=== PATIENT | male | born 1965 | race Caucasian/White ===

== ENCOUNTER 2016-08-21 20:05 | Inpatient (IN) | payer BC ==
[~2016-08-21] VITALS: Ht 152.4 cm; Wt 95.3 kg
--- NOTE | ~2016-08-21 | EC ---
PATIENT:RUBY DAI DATE OF SERVICE: 08/23/16 SEX: M MEDICAL RECORD: [id number] DATE OF : 67 LOCATION:D.MS [address] AGE OF PATIENT: 50 ADMISSION DATE: 08/21/16 REFERRING PHYSICIAN: INTERPRETING PHYSICIAN: RIOS CASTANEDA MD ECHOCARDIOGRAM REPORT ECHO CHARGES 4 ECHO COMPLETE CLINICAL DIAGNOSIS: L MCA LACUNE/ ASSESS FOR CLOT HX OF CAD/STENTS/HTN ECHOCARDIOGRAPHIC MEASUREMENTS (adult normal given) AC root (d.<3.7cm) 4.1 LV Septum d (<1.2 cm> 1.5 Valve Excursion 1.9 LV Septum (systole) 2.0 Left Atria (s.<4.0cm> 2.7 LVPW d(<1.2cm) 1.6 RV (d.<2.3cm) 3.6 LVPW (sytole) 2.2 LV diastole(<5.6CM) 5.2 MV E-F(>70mm/sec) LV systole 3.2 LVOT Diameter 2.0 MV exc.(>10mm) 1.5 Est.ejection fraction (50-75%) Pericardial Effusion N DOPPLER: LVIT A 91.0 E 82.0 LA RVSP 17 LVOT 98 AOP1/2T Asc. Ao 158 RVOT 94 RA PA 194 AV Gradient Peak 9.52 AV Mean 4.87 AV Area 2.5 MV Gradient Peak 7.45 MV Mean 2.13 MV Area COMMENTS: PA IS 194 CM/SEC OR 3.55 MMHG, RVSP IS 17 MMHG Crane Rigger: Monae GUERRERO Cabinet Abrasive Sandblaster:1 Dr. Castaneda TAPE# PACS TWO-DIMENSIONAL ECHOCARDIOGRAM WITH DOPPLER 1. Left ventricular chamber size is within normal limits. Left ventricular systolic function is normal. Overall ejection fraction is estimated at 55 percent. 2. Left atrium, right atrium, and right ventricular chamber sizes are within normal limits. 3. Valvular structures have normal structure and motion. 4. Doppler interrogation only reveals trace tricuspid regurgitation; no other valvular insufficiency or stenosis. 5. No evidence of pericardial effusion or left ventricular thrombus. ECHOCARDIOGRAM REPORT [id number] RUBY DAI 6. No cardiac source of neurologic emboli. RIOS CASTANEDA MD CC: [id number] DICTATION DATE: 08/24/16 1500 METAL LEAF LAYER: DM 08/26/16 1145 DIS IN 08/23/16 [facility] [address] [facility] [place] [address]
[~2016-08-21 20:05] MED LIST: ASPIRIN325 MG PO; ASPIRIN81 MG PO; BAYER CHEWABLE81 MG PO; DILATRATE-SR40 MG PO; GLUCOPHAGE500 MG PO; HCTZ25 MG PO; LISINOPRIL10 MG PO; PLAVIX75 MG PO; PRAVACHOL20 MG PO; PREDNISONE5 MG PO
[2016-08-21 21:11] LABS: BASOPHILS 0.1 % (0-2); EOSINOPHILS 1.8 % (0-7); HEMATOCRIT 41.9 % (42.0-54.0); IMMATURE GRANULOCYTES 0.2 % (0-5); MCH 30.7 pg (26.0-34.0); MCHC 33.4 g/dL (31.0-37.0); MCV 91.9 fL (80.0-100.0); MONOCYTES 8.9 % (2-11); PLATELET COUNT 248 10x3/uL (130-400); RBC 4.56 10x6/uL (4.20-6.10); RDW 12.6 % (11.5-14.5); WBC 8.5 10x3/uL (4.8-10.8)
[2016-08-21 21:15] LABS: APTT 25.4 SECONDS (22.8-39.4); INR 0.93 (0.85-1.17); PROTIME 12.3 SECONDS (11.6-15.0)
[2016-08-21 21:45] LABS: ALBUMIN 3.7 g/dL (3.4-5.0); ALKALINE PHOSPHATASE 200 U/L (46-116); ALT (SGPT) 182 U/L (10-68); CALC OSMOLALITY 278 mosm/kg (275-300); CALCIUM 9.2 mg/dL (8.5-10.1); CARBON DIOXIDE 27.6 mmol/L (21.0-32.0); CHLORIDE - SERUM 98 mmol/L (98-107); CREATININE - SERUM 1.5 mg/dL (0.6-1.3); POTASSIUM - SERUM 4.7 mmol/L (3.5-5.1); SODIUM 135 mmol/L (136-145); UREA NITROGEN 15 mg/dL (7-18); eGFR NON AFRICAN AMERICAN 53 mL/min (90-120)
[2016-08-21 21:46] LABS: GLUCOSE 251 mg/dL (74-106)
[2016-08-21 22:01] LABS: CREATINE KINASE 118 UL (21-232); TROPONIN-I < 0.017 ng/mL (0.000-0.060)
--- NOTE | 2016-08-22 00:57 | NUR ---
ADMITTED TO ROOM 2240 VIA WHEELCHAIR FROM ER. CC OF RIGHT SIDED WEAKENSS. ALERT,ORIENTED X 3. SL TO LEFT AC WITHOUT REDNESS OR EDEMA NOTED..ORIENTED TO ROOM CL IN REACH
[2016-08-22 03:44] VITALS: BP 129/78; BMI 41.0
[2016-08-22 04:00] VITALS: BP 133/77
--- NOTE | 2016-08-22 06:50 | NUR ---
BS 192 PATIENT REFUSED INSULIN.STATING HE HAS NEVER TAKEN IT AND IS A LITTLE SCARED. WISHES TO TALK WITH HIS DOCTOR BEFORE TAKING IT.
--- NOTE | 2016-08-22 07:00 | NUR ---
REPORT RECIEVED ASSUMED CARE. PATIENT IN BED WITH IV INTACT. NO COMPLAINTS CALL LIGHT WITHIN REACH.
--- NOTE | 2016-08-22 08:50 | NUR ---
Patient Name: RUBY DAI Admission Status: ER Accout number: [id number] Admission Date: 08-21-2016 : 1965 Admission Diagnosis: Attending: ERIK Current LOS: 1 Anticipated DC Date: 08-24-2016 Planned Disposition: Home Primary Insurance: [email or web address] [facility] [place] Discharge Planning Comments: CM MET WITH PATIENT REGARDING D/C NEEDS AND PLANS. PATIENT STATED HE LIVES WITH HIS AND SHE WILL DRIVE HIM HOME AT DISCHARGE. PATIENT STATED THERE IS ONE STEP TO ENTER HOME AND A STAIRCASE IN THE HOME. PATIENT STATED HE IS INDEPENDENT WITH HIS CARE AND HAS A WALKER, CANE, CPAP, AND GLUCOMETER (CHECKS 2X WEEK) AT HOME. PATIENTS PCP IS DR. CHAN AND PHARMACY IS [facility]. PATIENT STATED HE DOES NOT WANT HOME HEALTH. CM WILL CONTINUE TO FOLLOW PATIENT WITH D/C NEEDS AND PLANS. PCP DR. DUSTIN DANIELLE [facility]- [phone] MARCIA DAI () [phone] Housekeeping Cleaner: Cass Fragoso Is the patient Alert and Oriented? Yes 0 * How many steps to enter\exit or inside your home? STAIRCASE 0 * PCP DR. CHAN 0 * Pharmacy [facility] ([facility]) 0 * Preadmission Environment Home with Family 0 * ADLs Independent 0 * Equipment Cane CPAP Glucometer Walker 0 * List name and contact numbers for known caregivers / representatives who currently or will assist patient after discharge: MARCIA DAI [phone] 0 * Community resources currently utilized None 0 * Additional services required to return to the preadmission environment? Yes 0 * Can the patient safely return to the preadmission environment? Yes 0 * Has this patient been hospitalized within the prior 30 days at any hospital? No 0 Grand Total: 0
[2016-08-22 09:27] VITALS: BP 124/84
[2016-08-22 09:36] LABS: BASOPHILS 0.1 % (0-2); HEMATOCRIT 40.5 % (42.0-54.0); HEMOGLOBIN 13.6 g/dL (13.5-17.5); IMMATURE GRANULOCYTES 0.3 % (0-5); LYMPHOCYTES 19.5 % (15-50); MCH 30.6 pg (26.0-34.0); MCHC 33.6 g/dL (31.0-37.0); MEAN PLATELET VOLUME 10.9 fL (7.4-10.4); MONOCYTES 6.5 % (2-11); NEUTROPHILS 71.6 % (40-80); PLATELET COUNT 226 10x3/uL (130-400); RBC 4.45 10x6/uL (4.20-6.10); RDW 12.7 % (11.5-14.5); WBC 7.5 10x3/uL (4.8-10.8)
[2016-08-22 09:48] LABS: ALBUMIN 3.4 g/dL (3.4-5.0); ALKALINE PHOSPHATASE 143 U/L (46-116); ALT (SGPT) 150 U/L (10-68); BILIRUBIN - TOTAL 0.43 mg/dL (0.2-1.3); CALC OSMOLALITY 273 mosm/kg (275-300); CALCIUM 8.7 mg/dL (8.5-10.1); CARBON DIOXIDE 24.9 mmol/L (21.0-32.0); CHLORIDE - SERUM 98 mmol/L (98-107); CHOL - HDL RATIO 3.3 ratio (2.3-4.9); CHOLESTEROL, TOTAL 211 mg/dL (0-200); GLUCOSE 227 mg/dL (74-106); HDL CHOLESTEROL 65 mg/dL (32-96); LDL CHOLESTEROL 114 mg/dL (0-100); LDL-HDL RATIO 1.8 ratio (1.5-3.5); SODIUM 133 mmol/L (136-145); TRIGLYCERIDE 164 mg/dL (30-200); UREA NITROGEN 14 mg/dL (7-18)
[2016-08-22 09:55] LABS: CREATININE - SERUM 1.1 mg/dL (0.6-1.3); POTASSIUM - SERUM 3.8 mmol/L (3.5-5.1); eGFR NON AFRICAN AMERICAN 75 mL/min (90-120)
[2016-08-22 10:54] LABS: HEMOGLOBIN A1C 8.6 % (4.8-6.0)
--- NOTE | 2016-08-22 13:00 | NUR ---
PATIENT BACK TO ROOM FROM CT. HAD ALLERGIC REACTION TO DYE WHILE DOWN THERE. VS STABLE. BS WNL. MEDS GIVEN BY RAPID RESPONSE NURSE. DR. MENA IN TO SEE PATIENT. FAMILY AT BEDSIDE. CALL LIGHT WITHIN REACH.
[2016-08-22 13:20] VITALS: BP 134/80
--- NOTE | 2016-08-22 15:03 | NUR ---
OT NOTE: PT OUT FOR MRI; WILL RE ATTEMPT TOMORROW. THANK YOU FOR REFERAL, JAZIEL HURST, OTR/L
[2016-08-22 15:14] VITALS: Ht 152.4 cm; Wt 95.3 kg
[2016-08-22 16:40] VITALS: BP 122/78
[2016-08-22 20:00] VITALS: BP 135/85
--- NOTE | 2016-08-22 20:10 | NUR ---
ALERT,ORIENTED X 3. NO COMPLAINTS VOICED. SL INTACT TO LEFT ARM WITHOUT REDNESS OR EDEMA NOTED. CL IN REACH
--- NOTE | 2016-08-22 23:35 | NUR ---
RN NOTE: PT RESTING ON LEFT SIDE WITH EYES CLOSED AND UNLABORED BREATHING. CPAP IN PLACE. WILL CONTINUE TO MONITOR FOR NEEDS.
[2016-08-23] VITALS: BP 122/81
--- NOTE | 2016-08-23 01:29 | NUR ---
RESTING QUIETLY. NO DISTRESS NOTED.CL IN REACH
[2016-08-23 04:00] VITALS: BP 121/79
[2016-08-23 05:58] LABS: BASOPHILS 0.1 % (0-2); EOSINOPHILS 2.7 % (0-7); HEMATOCRIT 40.8 % (42.0-54.0); HEMOGLOBIN 13.7 g/dL (13.5-17.5); IMMATURE GRANULOCYTES 0.3 % (0-5); LYMPHOCYTES 18.8 % (15-50); MCH 30.7 pg (26.0-34.0); MCHC 33.6 g/dL (31.0-37.0); MCV 91.5 fL (80.0-100.0); MEAN PLATELET VOLUME 10.7 fL (7.4-10.4); MONOCYTES 7.9 % (2-11); NEUTROPHILS 70.2 % (40-80); PLATELET COUNT 217 10x3/uL (130-400); RBC 4.46 10x6/uL (4.20-6.10); RDW 12.7 % (11.5-14.5); WBC 7.1 10x3/uL (4.8-10.8)
--- NOTE | 2016-08-23 06:13 | NUR ---
AROUSES EASILY TO VERBAL STIMULI. NO COMPLAINTS VOICED. CL IN REACH
[2016-08-23 06:24] LABS: ALBUMIN 3.3 g/dL (3.4-5.0); ALKALINE PHOSPHATASE 133 U/L (46-116); ALT (SGPT) 145 U/L (10-68); BILIRUBIN - TOTAL 0.51 mg/dL (0.2-1.3); CALC OSMOLALITY 276 mosm/kg (275-300); CALCIUM 8.8 mg/dL (8.5-10.1); CHLORIDE - SERUM 101 mmol/L (98-107); CHOL - HDL RATIO 3.7 ratio (2.3-4.9); CHOLESTEROL, TOTAL 214 mg/dL (0-200); GLUCOSE 181 mg/dL (74-106); HDL CHOLESTEROL 58 mg/dL (32-96); LDL CHOLESTEROL 118 mg/dL (0-100); POTASSIUM - SERUM 3.9 mmol/L (3.5-5.1); PROTEIN - SERUM 6.9 g/dL (6.4-8.2); SODIUM 136 mmol/L (136-145); TRIGLYCERIDE 194 mg/dL (30-200); UREA NITROGEN 13 mg/dL (7-18); eGFR NON AFRICAN AMERICAN 84 mL/min (90-120)
[2016-08-23 08:44] VITALS: BP 120/84
[2016-08-23 12:40] VITALS: BP 146/93
[2016-08-23] MEDS ORDERED: THIAMINE HCL50 MG PO (13:53)
[2016-08-23] MEDS ORDERED: ASPIRIN325 MG PO (13:53)
[2016-08-23] MEDS ORDERED: FOLIC ACID1 MG PO (13:53)
[2016-08-23] MEDS ORDERED: PRAVACHOL20 MG PO (13:53)
--- NOTE | 2016-08-23 16:43 | NUR ---
PATIENT RECIEVED DISCHARGE INSTRUCTIONS. VERBALIZED UNDERSTANDING. NO QUESTIONS AT THIS TIME. IV REMOVED WITH CATH TIP INTACT. CALL LIGHT WITHIN REACH.
== END 2016-08-23 16:58 | disposition home or self-care (01) | DRG 65 ==
LOC: D.ER 20:05 → D.MS 23:55
PROVIDERS: Emergency Medicine; ADMIT Emergency Medicine
DX: I63.9 Cerebral infarction, unspecified (principal); E87.1 Hypo-osmolality and hyponatremia; N17.9 Acute kidney failure, unspecified; I69.351 Hemiplegia and hemiparesis following cerebral infarction affecting right dominant side; R53.1 Weakness; E11.65 Type 2 diabetes mellitus with hyperglycemia; I10 Essential (primary) hypertension; I25.10 Atherosclerotic heart disease of native coronary artery without angina pectoris; G47.33 Obstructive sleep apnea (adult) (pediatric); E78.5 Hyperlipidemia, unspecified; D64.9 Anemia, unspecified; L50.8 Other urticaria; T50.8X5A Adverse effect of diagnostic agents, initial encounter; Y92.238 Other place in hospital as the place of occurrence of the external cause

== ENCOUNTER 2017-09-05 07:33 | Outpatient (CLI) | payer BC ==
[~2017-09-05] VITALS: Ht 152.4 cm; Wt 95.5 kg
--- NOTE | ~2017-09-05 | HEMODYNAMI ---
PATIENT:RUBY DAI MEDICAL RECORD: [id number] : 67 LOCATION:D.CAT ADMISSION DATE: 09/05/17 Generatedon:09/05/201710:21 Patient name: RUBY DAI Patient #: [id number] SSN: : 1965 Date of study: 09/05/2017 Page: Of Hemodynamic Procedure Report Patient Data Patient Demographics Procedure consent was obtained First Name: RUBY Gender: Male Last Name: SUHAS : 1965 [facility] Initial: LOY Age: 51 year(s) Patient #: [id number] Race: Unknown Additional ID: [id number] Contact details [address]: [address] [place] [address] [place] State: [place] City: [place] Zip code: [address] Past Medical History Allergies Allergen Reaction Date Comments Reported Other allergy 09/05/2017 GADOLINIUM CONTRAST Admission Admission Data Admission Date: 09/05/2017 Admission Time: 7:33 Procedure Procedure Types Cath Procedure Diagnostic Procedure LH LH w/Coronaries PCI Procedure Coronary Stent Coronary Stent Initial Procedure Description Procedure Date Procedure Date: 09/05/2017 Procedure Start Time: 10:04 Procedure End Time: 10:21 Procedure Staff Name Function Candido Castaneda MD Performing Physician Jerrica Shine RT Monitor Osiris Morrow RN Nurse Magda Starkey RT Scrub Tiburcio Moy RT Dials Inspector Procedure Data Cath Procedure Fluoroscopy Diagnostic fluoroscopy Total fluoroscopy Time: 4.2 time: 4.2 min min Diagnostic fluoroscopy Total fluoroscopy dose: dose: 1235 mGy 1235 mGy Contrast Material Contrast Material Type Amount (ml) Isovue 300 88 Entry Location Entry Primary Successful Side Size Upsize Upsize Entry Closure Chandler ccessful Closure Location (Fr) 1 (Fr) 2 (Fr) Remarks Device Remarks Radial Right 6 Fr Mechanical artery Short Compression Estimated blood loss: 10 ml Diagnostic catheters Device Type Used For End Catheter Placement DIAGNOSTIC [place] 110cm 5 Procedure Fr catheter ([id number]) Procedure Complications No complications Procedure Medications Medication Administration Route Dosage Solumedrol I.V. 125 mg 0.9% NaCl I.V. 100 ml/hr Oxygen NC 2 l/min Lidocaine 2% added to field 20 Heparin Flush Bag added to field 2 bags (1000units/500ml NS) Versed I.V. 2 mg Fentanyl I.V. 100 mcg Radial Cocktail I.A. 1 syringe (Verapomil 2mg/Nitro 400mcg/Heparin 1500units) Heparin Bolus I.V. 4000 units Integrilin (Bolus I.V. 8.5 ml 2mg/ml) Versed I.V. 1 mg Fentanyl I.V. 50 mcg Versed I.V. 1 mg Fentanyl I.V. 50 mcg Plavix P.O. 600 mg Hemodynamics Rest Heart Rate: 71 (bpm) Snapshots Pre Cath Intra NCS Post Cath Vital Signs Time Heart Resp SPO2 etCO2 NIBP (mmHg) Rhythm Pain Sedation Rate (ipm) (%) (mmHg) Status Level (bpm) 9:51:56 68 20 100 26.8 130/90(114) NSR 0 (11) 10(A) , No pain 9:56:06 77 15 100 29.1 136/88(116) NSR 0 (11) 10(A) , No pain 10:00:14 66 15 94 18.6 120/85(102) NSR 0 (11) 10(A) , No pain 10:04:20 87 16 99 25.3 137/87(109) NSR 0 (11) 10(A) , No pain 10:08:30 96 15 95 14.1 113/76(98) NSR 0 (11) 10(A) , No pain 10:12:36 94 13 96 9.7 123/78(93) NSR 0 (11) 10(A) , No pain 10:16:45 90 14 98 23.8 110/78(99) NSR 0 (11) 10(A) , No pain 10:20:49 83 14 97 18.6 124/81(116) NSR 0 (11) 10(A) , No pain Medications Time Medication Route Dose Verified Delivered Reason Note s Effectiveness by by 9:52:36 Solumedrol I.V. 125 mg Candido Newell used for Tonya Morrow RN procedure 9:54:21 0.9% NaCl I.V. 100 Candido Edisonie Per physician ml/hr Tonya Morrow RN 9:54:31 Oxygen NC 2 l/min Candido Buffie used for Tonya Morrow RN procedure 9:54:37 Lidocaine 2% added 20ml Candido Candido for local to vial Tonya Castaneda MD anesthetic field 9:54:42 Heparin Flush added 2 bags Candido Rey used for Bag to Tonya Castaneda MD procedure (1000units/500ml field NS) 10:02:52 Versed I.V. 2 mg Candido Buffie for sedation Tonya Morrow RN 10:02:59 Fentanyl I.V. 100 mcg Candido Buffie for sedation Tonya Morrow RN 10:06:04 Radial Cocktail I.A. 1 Candidoenedelia Rey for (Verapomil syringe Tonya Castaneda MD vasodilation 2mg/Nitro 400mcg/Heparin 1500units) 10:06:12 Versed I.V. 1 mg Candido Hoganie for sedation Tonya Morrow RN 10:06:15 Fentanyl I.V. 50 mcg Candido Hoganie for sedation Tonya Morrow RN 10:09:57 Heparin Bolus I.V. 4000 Candido Buffie for veri fied units Tonya Morrow RN anticoagulation with dr castaneda 10:11:23 Integrilin I.V. 8.5ml Candido Buffie for Wast ed (Bolus 2mg/ml) Tonya Morrow RN antiplatelet 1.5 ml therapy of vial 10:14:53 Versed I.V. 1 mg Candido Hoganie for sedation Tonya Morrow RN 10:14:58 Fentanyl I.V. 50 mcg Candido Newell for sedation Tonya Morrow RN 10:19:39 Plavix P.O. 600 mg Candido Hoganie for Tonya Morrow RN antiplatelet therapy Procedure Log Time Note 9:30:29 Tiburcio Moy RT(R) sent for patient. Start room use. 9:50:36 Time tracking: Regular hours (M-F 7:00 - 5:00) 9:50:40 Plan of Care:Hemodynamics will remain stable., Cardiac rhythm will remain stable., Comfort level will be maintained., Respiratory function will remain adequate., Patient/ family verbilizes understanding of procedure., Procedure tolerated without complication., Recovers from procedure without complications.. 9:50:46 Patient received from Pre/Post Procedure Room to CCL 2 Alert and oriented. Tansferred to table in Supine position. 9:50:47 Warm blankets applied, and duane hugger turned on for patient comfort. 9:50:47 Correct patient and procedure confirmed by team. 9:50:48 Signed procedure consent form obtained from patient. 9:50:49 ECG and BP/O2 sat monitors applied to patient. 9:50:53 Vital chart was started 9:52:31 Baseline sample Acquired. 9:52:36 Solumedrol 125 mg I.V. was administered by Osiris Morrow RN; used for procedure; 9:52:45 Rhythm: sinus rhythm 9:52:47 Full Disclosure recording started 9:53:24 H&P Date Dictated: 08/06/2017 Within 30 days and on chart., H&P Addendum completed by physician on day of procedure. (MUST COMPLETE FOR ALL OUTPATIENTS). 9:53:25 Pre-procedure instructions explained to patient. 9:53:26 Pre-op teaching completed and patient verbalized understanding. 9:53:28 Family in patients room. 9:53:29 Patient NPO since Midnight. 9:54:20 Patient allergic to Other allergyGADOLINIUM CONTRAST 9:54:21 0.9% NaCl 100 ml/hr I.V. was administered by Osiris Morrow RN; Per physician; 9:54:24 Is the patient allergic to Iodine/contrast media? Yes. 9:54:26 Was the patient premedicated? Yes 9:54:31 Oxygen 2 l/min NC was administered by Osiris Morrow RN; used for procedure; 9:54:33 Is patient on blood thinner?Yes 9:54:37 Lidocaine 2% 20ml vial added to field was administered by Candido Castaneda MD; for local anesthetic; 9:54:37 ACC The patient was administered the following blood thiners within the last 24 hours: ACCPlavix 9:54:42 Heparin Flush Bag (1000units/500ml NS) 2 bags added to field was administered by Candido Castaneda MD; used for procedure; 9:54:46 TAKES AGRONOX 9:54:51 Patient diabetic? Yes. 9:54:52 If diabetic: On Metformin? Yes 9:54:56 If on Metformin: Last Dose? 09/03/2017 9:55:01 Previous problem with sedation/anesthesia? No ? 9:55:04 Snore? Yes 9:55:05 Sleep apnea? Yes 9:55:11 Deviated septum? No 9:55:12 Opens mouth fully? Yes 9:55:13 Sticks out tongue? Yes 9:55:19 Airway obstruction? No ? 9:55:22 Dentures? No ? 9:55:23 Modified Kashif's test Ulnar < 7 seconds 9:55:26 Patient pain scale 0/10 ?. 9:55:37 IV patent on arrival in left hand with 0.9% NaCl at [facility]. 9:55:42 Right Radial & Right Groin area was prepped with chlora-prep and draped in sterile fashion 9:55:43 Alarms reviewed by R. N. 9:55:43 Sharps counted by scrub and verified by R.N. 9:55:48 Use device set Radial Dx or PCI 9:55:49 ACIST Syringe (62404) opened to sterile field. 9:55:50 Bag Decanter (2002S) opened to sterile field. 9:55:51 ACIST Hand Control (09718) opened to sterile field. 9:55:51 ACIST Manifold (43455) opened to sterile field. 9:55:52 Tegaderm 4 x 4 (1626W) opened to sterile field. 9:55:53 Medline Cath Pack ([id number]) opened to sterile field. 9:55:54 DIAGNOSTIC WIRE .035 260cm J wire (511960) opened to sterile field. 9:55:54 MBrace Wrist Support ([id number]) opened to sterile field. 9:55:55 SHEATH 6Fr Prelude Radial ([id number]) opened to sterile field. 9:57:54 Zero performed for pressure channel P1 10:01:29 --------ALL STOP TIME OUT------ 10:01:30 Final Timeout: patient, procedure, and site verified with staff and physician. All members of the team are in agreement. 10:01:32 Right Radial & Right Groin site verified by team. 10:01:34 Physical assessment completed. ASA score P 2 - A patient with mild systemic disease as per Candido Castaneda MD. 10:01:38 Sedation plan: IV Moderate Sedation Medication:Versed, Fentanyl 10:02:44 Zero performed for pressure channel P1 10:02:52 Versed 2 mg I.V. was administered by Osiris Morrow RN; for sedation; 10:02:59 Fentanyl 100 mcg I.V. was administered by Osiris Morrow RN; for sedation; 10:03:32 Procedure started. 10:04:15 Local anesthetic to right radial artery with Lidocaine 2% by Candido Castaneda MD.INITIAL ACCESS ONLY 10:06:04 Radial Cocktail (Verapomil 2mg/Nitro 400mcg/Heparin 1500units) 1 syringe I.A. was administered by Candido Castaneda MD; for vasodilation; 10:06:05 A 6 Fr Short sheath was inserted into the Right Radial artery 10:06:11 A DIAGNOSTIC [place] 110cm 5 Fr catheter ([id number]) was advanced over the wire and used for Procedure. 10:06:12 Versed 1 mg I.V. was administered by Osiris Morrow RN; for sedation; 10:06:15 Fentanyl 50 mcg I.V. was administered by Osiris Morrow RN; for sedation; 10:06:15 LV gram done using GIRALDO 10:06:18 Injector settings: Ml/sec: 5, Volume: 15, 10:06:58 EF : 60 % 10:08:06 LCA angiography performed. 10:08:29 Merit INFLATION SYRINGE opened to sterile field. 10:08:33 CHOICE PT Extra Support 182cm wire ([id number]) opened to sterile field. 10:09:07 RCA angiography performed. 10:09:15 Catheter exchanged over wire. 10:09:17 GUIDE 6FR AR 2.0 SH catheter ([id number]) opened to sterile field. 10:09:35 6 Fr AR2 SH guide catheter was inserted over the wire 10:09:57 Heparin Bolus 4000 units I.V. was administered by Osiris Morrow RN; for anticoagulation; verified with dr castaneda 10:10:36 CHOICE ES 182 wire advanced. 10:11:23 Integrilin (Bolus 2mg/ml) 8.5ml I.V. was administered by Osiris Morrow RN; for antiplatelet therapy; Wasted 1.5 ml of vial 10:11:54 Wire advanced across lesion. 10:13:39 Place stent Inflation Number: 1 A JOE RX 2.5 x 38 stent ([id number]) was prepped and advanced across the Dist RCA. The stent was deployed at 21 POLY for 0:10 (min:sec). 10:13:56 Stent catheter was removed intact over wire. 10:14:53 Versed 1 mg I.V. was administered by Osiris Morrow RN; for sedation; 10:14:58 Fentanyl 50 mcg I.V. was administered by Osiris Morrow RN; for sedation; 10:15:11 Place stent Inflation Number: 1 A JOE RX 2.75 x 38 stent ([id number]) was prepped and advanced across the Mid RCA. The stent was deployed at 23 POLY for 0:10 (min:sec). 10:15:38 Inflation number: 2 The stent balloon was then re-inflated across the Mid RCA to 21 POLY for 0:10 (min:sec). 10:16:10 Wire removed. 10:16:11 Guide catheter removed. 10:16:17 Procedure ended.(Physican Out) 10:16:26 TR BAND Standard ([id number]) opened to sterile field. 10:16:34 Sheath removed intact; hemostasis achieved with Mechanical Compression to the Right Radial artery. 10:16:39 Fluoroscopy time 04.20 minutes. 10:16:43 Fluoroscopy dose: 1235 mGy 10:16:43 Flurop Dose total: 1235 10:16:51 Contrast amount:Isovue 300 88ml. 10:17:49 Sharps counted by scrub and verified by R.N. 10:17:51 TR band inflated with 10cc of air. 10:17:55 Post-procedure physical assessment completed. ASA score P 2 - A patient with mild systemic disease as per Candido Castaneda MD. 10:18:06 Post procedure rhythm: sinus tachycardia 10:18:08 Estimated blood loss: 10 ml 10:18:10 Post procedure instruction explained to patient.Patient verbalizes understanding. 10:18:10 Patient needs reinforcement of post procedure teaching. 10:18:28 Procedure type changed to Cath procedure, Diagnostic procedure, LHC, LHC w/Coronaries, PCI procedure, Coronary Stent, Coronary Stent Initial 10:18:53 Procedure and supply charges have been captured, reviewed, submitted and are correct. 10:18:55 Procedure Complication : No complications 10:19:39 Plavix 600 mg P.O. was administered by Osiris Morrow RN; for antiplatelet therapy; ::18 Vital chart was stopped 10::19 See physician's report for complete and final results. 10:21:20 Report given to Pre/Post Procedure Room. 10:21:23 Patient transfered to Pre/Post Procedure Room with Bed. 10:21:26 Procedure ended. 10:21:26 Full Disclosure recording stopped 10:21:29 End room use (Document Last) Intervention Summary Intervention Notes Time ActionType Lesion and Equipment Used Action# Pressure Duration Attributes 10:13:39 Place stent Dist RCA JOE RX 2.5 x 1 21 00:10 38 stent ([id number]) 10:15:11 Place stent Mid RCA JOE RX 2.75 x 1 23 00:10 38 stent ([id number]) 10:15:38 Reinflate Mid RCA JOE RX 2.75 x 2 21 00:10 stent 38 stent balloon ([id number]) Device Usage Item Name Manufacture Quantity Catalog Number Hospital Part Current Minimal Lot# / Charge Number Stock Stock Serial# Code ACIST Syringe Acist 1 94116 249070 604573 [id number] 20 (38985) [employer] Inc Bag Decanter Microtek 1 2001S 666329 92106 913971 5 (2001S) Medical Inc. ACIST Hand Acist 1 32932 033774 959743 070775 5 Control (03365) Medical Systems Inc ACIST Manifold Acist 1 20257 674793 058051 490104 5 (69718) Medical Systems Inc Tegaderm 4 x 4 3M 1 1626W 278439 550811 811661 5 (1626W) Medline Cath Cardinal 1 [id number] 996918 28606 998314 5 [facility] ([id number]) DIAGNOSTIC WIRE St Dawit 1 122846 710439 010347 829376 30 .035 260cm J wire (594477) MBrace Wrist Advanced 1 140-0250-00 398252 33839 791651 5 Support Vascular ([id number]) Dynamics SHEATH 6Fr Merit 1 [id number] 296075 222826 151390 5 Prelude Radial Medical ([id number]) DIAGNOSTIC Terumo 1 39-9086 568193 976670 203465 5 [place] 110cm 5 Fr catheter (546403) Merit INFLATION Medtronic 1 A08A 613029 14007 837881 5 SYRINGE CHOICE PT Extra [place] 1 [id number] 799857 172921 624764 5 Support 182cm Scientific wire ([id number]) GUIDE 6FR AR Medtronic 1 [id number] 621995 66200 294193 1 2.0 SH catheter ([id number]) JOE RX 2.5 x Medtronic 1 [id number] 751700 9894365 870972 5 [id number] 38 stent ([id number]) JOE RX 2.75 x Medtronic 1 [id number] 366654 7298823 855991 5 [id number] 38 stent ([id number]) TR BAND Terumo 1 [id number] 185396 343748 890674 40 Standard ([id number]) Signature Audit [place] Stage Time Signature Unsigned Intra-Procedure 09/05/2017 Jerrica Shine 10:21:47 AM RT(R) Signatures Monitor : Jerrica Shnie Signature : RT Date : Time : [place] [id number] [place] [address]
--- NOTE | ~2017-09-05 | OP ---
PATIENT NAME: RUBY DAI MEDICAL RECORD: [id number] :67 LOCATION:D.CAT ADMISSION DATE: SURGEON: RIOS GUNN MD DATE OF OPERATION: 09/05/2017 PROCEDURES: 1. PTCA stent RCA. 2. Left heart catheterization. 3. Selective coronary angiography. 4. Left ventriculogram. INDICATION: Chest pain compatible with angina and coronary artery disease. PROCEDURE IN DETAIL: After informed consent was obtained and after a detailed description of the risks, benefits as well as alternative therapies, the patient elected to proceed with angiogram and angioplasty. The right radial area was prepped and draped in normal sterile fashion. Right radial artery was cannulated via modified Seldinger technique with placement of 6-Persian sheath. All catheters exchanged through this sheath. FINDINGS: Left ventriculogram was performed in standard 30-degree GIRALDO view, reveals preserved cardiac wall motion, ejection fraction 55% to 60%. SELECTIVE CORONARY ANGIOGRAPHY: 1. Left main showed no significant angiographic disease. 2. Left anterior descending has 80% stenosis throughout the proximal vessel. 3. Left circumflex has moderate irregularities, but no flow-limiting stenosis. 4. The right coronary artery has multiple areas of 80+ percent stenosis throughout the proximal and distal vessel. The PDA is totally occluded. PTCA STENT OF THE RCA: We could not traverse the total occlusion of the PDA. We addressed multiple lesions of the RCA with a 2.5 x 38 and 2.75 x 38, both [place] stents. Result was 0% residual stenosis. OVERALL IMPRESSION: Successful percutaneous transluminal coronary angioplasty stent of the right coronary artery going from multiple areas of 80% initial stenosis to 0% residual. PLAN: PTCA stent of the LAD in the near future. TRANSINT:[id number] Voice Confirmation ID: [id number] DOCUMENT ID: [id number] RIOS GUNN MD at 1325 CC: [id number] DICTATION DATE: 09/05/17 1023 SHANK SKINNER: 09/05/17 1119 DEP CLI 09/05/17 [place] [id number] [place] [address]
[~2017-09-05 07:33] MED LIST changes: +FOLIC ACID1 MG PO; +THIAMINE HCL50 MG PO
[2017-09-05] MEDS ORDERED: ACTOS30 MG PO (07:50)
[2017-09-05] MEDS ORDERED: AGGRENOX 200/251 CAP PO (07:51)
[2017-09-05 08:03] VITALS: BP 139/73; Ht 152.4 cm; Wt 95.5 kg
[2017-09-05 08:07] LABS: BASOPHILS 0.2 % (0-2); EOSINOPHILS 1.5 % (0-7); HEMATOCRIT 40.1 % (42.0-54.0); HEMOGLOBIN 13.7 g/dL (13.5-17.5); IMMATURE GRANULOCYTES 0.5 % (0-5); LYMPHOCYTES 19.8 % (15-50); MCH 31.6 pg (26.0-34.0); MCHC 34.2 g/dL (31.0-37.0); MCV 92.6 fL (80.0-100.0); MEAN PLATELET VOLUME 10.7 fL (7.4-10.4); MONOCYTES 12.7 % (2-11); NEUTROPHILS 65.3 % (40-80); PLATELET COUNT 210 10x3/uL (130-400); RBC 4.33 10x6/uL (4.20-6.10); RDW 13.9 % (11.5-14.5); WBC 5.9 10x3/uL (4.8-10.8)
[2017-09-05 08:34] LABS: CALC OSMOLALITY 279 mosm/kg (275-300); CALCIUM 9.1 mg/dL (8.5-10.1); CARBON DIOXIDE 27.3 mmol/L (21.0-32.0); CHLORIDE - SERUM 102 mmol/L (98-107); CREATININE - SERUM 0.9 mg/dL (0.6-1.3); POTASSIUM - SERUM 4.8 mmol/L (3.5-5.1); SODIUM 139 mmol/L (136-145); UREA NITROGEN 15 mg/dL (7-18); eGFR NON AFRICAN AMERICAN > 90 mL/min (90-120)
[2017-09-05 08:49] LABS: GLUCOSE 117 mg/dL (74-106)
[2017-09-05] MEDS ORDERED: PLAVIX75 MG PO (10:56)
[2017-09-05] MEDS ORDERED: BAYER ASPIRIN325 MG PO (12:16)
== END 2017-09-05 14:40 | disposition home or self-care (01) ==
LOC: D.CATH 07:33
PROVIDERS: Internal Medicine Interventional Cardiology
DX: I25.119 Atherosclerotic heart disease of native coronary artery with unspecified angina pectoris (principal); I25.82 Chronic total occlusion of coronary artery

== ENCOUNTER 2017-09-10 07:52 | Outpatient (CLI) | payer BC ==
[~2017-09-10] VITALS: Ht 152.4 cm; Wt 95.5 kg
--- NOTE | ~2017-09-10 | HP ---
PATIENT: RUBY PATEL MEDICAL RECORD: [id number] ACCOUNT: [id number] LOCATION:[facility] : 67 ADMISSION DATE: 09/10/17 HISTORY AND PHYSICAL EXAMINATION ADMITTING DIAGNOSES: 1. Angina. 2. Coronary artery disease. 3. Recent PTCA and stent of the RCA with concomitant disease of LAD. HISTORY OF PRESENT ILLNESS: Mr. Patel presents with unstable anginal symptomatology, found to have 2-vessel disease of the RCA and LAD, underwent successful PTCA and stent of the RCA. He is now brought back for PTCA and stent of the LAD. PHYSICAL EXAMINATION: GENERAL APPEARANCE: Well-nourished, well-developed, appears stated age. Level of distress, comfortable. PSYCHIATRIC: Mental status, alert, normal affect. Orientation, oriented to time, place and person. EYES: Lids and conjunctiva, noninjected. No discharge, no pallor. ENT: Lips, teeth, gums, normal dentition. Oropharynx, no cyanosis, no pallor. NECK: Carotid arteries, bilateral normal upstroke, no bruits, no thrills. JUGULAR VEINS: No jugular venous pressure or distention. CERVICAL LYMPH NODES: Nontender, nonenlarged. THYROID: Not enlarged. Nontender. No nodules. LUNGS: Respiratory effort, unlabored. CHEST: Normal curvature. No thoracic deformity. No chest wall tenderness. Percussion, resonant. Auscultation, clear. No wheezes, no rales, no rhonchi. CARDIOVASCULAR: Precordial exam, nondisplaced. No heaves or pericardial thrills. Rate and rhythm, regular. Heart sounds, normal S1, normal S2. No S3, no gallop, no rub. Systolic murmur, not heard. Diastolic murmur, not heard. EXTREMITIES: No cyanosis, no edema. Peripheral pulses, full and equal in all extremities, except as noted. No bruits appreciated. ABDOMEN: Soft, nondistended. Normal aorta. No bruit. Nontender. No masses. Liver, nontender, no hepatomegaly. Spleen, nontender, no splenomegaly. MUSCULOSKELETAL: No joint tenderness. No joint swelling. No erythema. NEUROLOGICAL: Normal gait, normal strength, normal tone. SKIN: Warm and dry. REVIEW OF SYSTEMS: The patient reports easy bruising but reports no swollen glands. The patient reports no fever, no night sweats, no significant weight gain, no significant weight loss. No significant exercise tolerance. The patient reports no dry eyes, no irritation, no vision change. Patient reports no difficulty hearing and no ear pain. Patient reports no frequent nose bleeds or nose and sinus problems. Patient reports on arm pain on exertion. No shortness of breath while lying down. No history of heart murmur. Patient reports no cough, no wheezing or coughing up blood. Patient reports no abdominal pain, no vomiting. Normal appetite. No diarrhea and not vomiting blood. No nausea and no constipation. Patient reports no incontinence. No difficulty urinating. No hematuria. No increased frequency. Patient reports no muscle aches. No weakness, no arthralgias, no back pain. No swelling of the extremities. Patient reports no abnormal mole, no jaundice, no rashes. Reports no loss of consciousness. No weakness and no numbness. No seizures, dizziness, or headaches. The patient reports no depression, no sleep disturbance, feeling HISTORY AND PHYSICAL [id number] RUBY PATEL safe in a relationship and no alcohol abuse. Patient reports on fatigue. Reports no runny nose or sinus pressure. No itching, no hives, and no frequent sneezing. OVERALL IMPRESSION: Anginal symptomatology. We will proceed with PTCA and stent of the LAD. TRANSINT:[id number] Voice Confirmation ID: [id number] DOCUMENT ID: [id number] IROS GUNN MD at 1325 CC: [id number] DICTATION DATE: 09/10/17 0935 INSPECTOR EYEGLASS: 09/10/17 1052 DEP CLI 09/10/17 [place] [id number] [place] [id number]
--- NOTE | ~2017-09-10 | OP ---
PATIENT NAME: RUBY DAI MEDICAL RECORD: [id number] :67 LOCATION:D.CAT ADMISSION DATE: SURGEON: RIOS GUNN MD DATE OF OPERATION: 09/10/2017 PROCEDURES: 1. PTCA stent LAD. 2. Selective coronary angiography. INDICATION: Angina and coronary artery disease. PROCEDURE IN DETAIL: After informed consent was obtained and after a detailed description of the risks, benefits as well as alternative therapies, the patient elected to proceed with angiogram and angioplasty. The right radial area was prepped and draped in normal sterile fashion. Right radial artery was cannulated via modified Seldinger technique with placement of 6-English sheath. All catheters exchanged through this sheath. FINDINGS: The left anterior descending has a long area of 80% stenosis proximally. This was addressed with a 2.5 x 26 mm Fidel. Result was 0% residual stenosis. OVERALL IMPRESSION: Successful percutaneous transluminal coronary angioplasty stent of the left anterior descending going from 80% initial stenosis to 0% residual. TRANSINT:[id number] Voice Confirmation ID: [id number] DOCUMENT ID: [id number] RIOS GUNN MD at 1325 CC: [id number] DICTATION DATE: 09/10/17 1033 PRINT LINE SUPERVISOR: 09/10/17 1058 [facility] CLI 09/10/[address] [address]
--- NOTE | ~2017-09-10 | HEMODYNAMI ---
PATIENT:RUBY DAI MEDICAL RECORD: [id number] : 67 LOCATION:D.CAT ADMISSION DATE: 09/10/17 Generatedon:09/10/201710:43 Patient name: RUBY DAI Patient #: [id number] SSN: : 1965 Date of study: 09/10/2017 Page: Of Hemodynamic Procedure Report Patient Data Patient Demographics Procedure consent was obtained First Name: RUBY Gender: Male Last Name: SUHAS : 1965 [facility] Initial: LOY Age: 51 year(s) Patient #: [id number] Race: Unknown Additional ID: [id number] Contact details Address: [address] [place] [address] [place] State: [place] City: [place] Zip code: [address] Past Medical History Allergies Allergen Reaction Date Comments Reported Other allergy 09/05/2017 GADOLINIUM CONTRAST Admission Admission Data Admission Date: 09/10/2017 Admission Time: 7:52 Weight (lbs.): 210 Weight (kg.): 95.25 Lab Results Lab Result Date: 09/10/2017 Lab Result Time: 0:00 CBC Name Units Result Min Max Hemoglobin g/dl 14.6 --(-*--)-- 13.5 17.5 Procedure Procedure Types Cath Procedure PCI Procedure Coronary Stent Coronary Stent Initial Procedure Description Procedure Date Procedure Date: 09/10/2017 Procedure Start Time: 10:25 Procedure End Time: 10:34 Procedure Staff Name Function Bigg Pena RT Monitor Tiburcio Moy RT Scrub Kulwinder Johnson RN Nurse Candido Castaneda MD Performing Physician Procedure Data Cath Procedure Fluoroscopy Diagnostic fluoroscopy Total fluoroscopy Time: 1.6 time: 1.6 min min Diagnostic fluoroscopy Total fluoroscopy dose: dose: 141.26 mGy 141.26 mGy Contrast Material Contrast Material Type Amount (ml) Isovue 300 40 Entry Location Entry Primary Successful Side Size Upsize Upsize Entry Closure Chandler ccessful Closure Location (Fr) 1 (Fr) 2 (Fr) Remarks Device Remarks Radial Right 6 Fr Mechanical artery Short Compression Estimated blood loss: 20 ml Procedure Medications Medication Administration Route Dosage Oxygen etCO2 Nasal cannula 2 l/min Heparin Flush Bag added to field 2 bags (1000units/500ml NS) 0.9% NaCl I.V. 100 ml/hr Radial Cocktail added to field 1 syringe (Verapomil 2mg/Nitro 400mcg/Heparin 1500units) Fentanyl I.V. 50 mcg Versed I.V. 1 mg Radial Cocktail I.A. 1 syringe (Verapomil 2mg/Nitro 400mcg/Heparin 1500units) Heparin Bolus I.V. 4000 units Fentanyl I.V. 50 mcg Versed I.V. 1 mg Hemodynamics Rest HGB: 14.6 (g/dl) Heart Rate: 62 (bpm) Snapshots Pre Cath Intra NCS Post Cath Vital Signs Time Heart Resp SPO2 etCO2 NIBP (mmHg) Rhythm Pain Sedation Rate (ipm) (%) (mmHg) Status Level (bpm) 10:02:34 66 16 97 0 112/79(90) NSR 0 (11) 10(A) , No pain 10:06:48 65 16 97 0 130/72(98) NSR 0 (11) 10(A) , No pain 10:12:06 67 18 95 0 153/79(99) NSR 0 (11) 10(A) , No pain 10:16:34 65 17 96 33.8 146/84(97) NSR 0 (11) 10(A) , No pain 10:22:14 77 16 95 12 139/72(101) NSR 0 (11) 10(A) , No pain 10:26:42 84 17 84 9 146/61(93) NSR 0 (11) 9(A) , No pain 10:31:10 90 17 98 29.3 125/70(96) NSR 0 (11) 9(A) , No pain Medications Time Medication Route Dose Verified Delivered Reason Not es Effectiveness by by 10:13:59 Oxygen etCO2 2 l/min Candido Miramontes Per physician Nasal Tonya Johnson RN cannula 10:14:28 Heparin Flush added 2 bags Candido Miramontes used for Bag to Tonya Johnson building surveyor (1000units/500ml field NS) 10:14:49 0.9% NaCl I.V. 100 Candido Miramontes Per physician ml/hr Tonya Johnson RN 10:17:52 Radial Cocktail added 1 Candido Miramontes used for (Verapomil to syringe Tonya Johnson RN procedure 2mg/Nitro field 400mcg/Hepari 10:25:25 Fentanyl I.V. 50 mcg Candido Miramontes for sedation Tonya Johnson RN 10:25:31 Versed I.V. 1 mg Candido Miramontes for sedation Tonya Johnson RN 10:25:43 Radial Cocktail I.A. 1 Candido Rey for (Verapomil syringe Tonya Castaneda MD vasodilation 2mg/Nitro 400mcg/Hepari 10:25:55 Heparin Bolus I.V. 4000 Candido Miramontes for units Tonya Johnson RN anticoagulation 10:27:43 Fentanyl I.V. 50 mcg Candido Miramontes for sedation Tonya Johnson RN 10:27:48 Versed I.V. 1 mg Candido Miramontes for sedation Tonya Johnson RN Procedure Log Time Note 9:40:20 Kulwinder Johnson RN sent for patient. Start room use. 9:52:21 Time tracking: Regular hours (M-F 7:00 - 5:00) 9:52:24 Plan of Care:Hemodynamics will remain stable., Cardiac rhythm will remain stable., Comfort level will be maintained., Respiratory function will remain adequate., Patient/ family verbilizes understanding of procedure., Procedure tolerated without complication., Recovers from procedure without complications.. 9:52:54 Patient received from Pre/Post Procedure Room to CCL 3 Alert and oriented. Tansferred to table in Supine position. 9:52:55 Correct patient and procedure confirmed by team. 9:52:55 Warm blankets applied, and duane hugger turned on for patient comfort. 9:52:57 Signed procedure consent form obtained from patient. 9:52:58 ECG and BP/O2 sat monitors applied to patient. 10:01:26 Vital chart was started 10:05:24 Baseline sample Acquired. 10:05:27 Rhythm: sinus rhythm 10:05:29 Full Disclosure recording started 10:05:37 H&P Date Dictated: 09/10/2017 Within 30 days and on chart., H&P Addendum completed by physician on day of procedure. (MUST COMPLETE FOR ALL OUTPATIENTS). 10:05:39 Pre-procedure instructions explained to patient. 10:05:40 Pre-op teaching completed and patient verbalized understanding. 10:05:42 Family unavailable. 10:05:44 Patient NPO since Midnight. 10:11:07 ALLERGY TO GADOLINIUM CONTRAST 10:11:12 Is the patient allergic to Iodine/contrast media? No. 10:12:29 Is patient on blood thinner?Yes 10:12:35 ACC The patient was administered the following blood thiners within the last 24 hours: ACCPlavix 10:12:47 ----Pre-sedation anethsthesia assessment.---- 10:12:50 Previous problem with sedation/anesthesia? No ? 10:12:52 Snore? Yes 10:12:53 Sleep apnea? Yes 10:12:55 Opens mouth fully? Yes 10:12:55 Deviated septum? No 10:12:56 Sticks out tongue? Yes 10:12:59 Airway obstruction? No ? 10:13:08 Pre procedure: right dorsailis pedis pulse 1+ Palpable, but thready & weak; easily obliterated 10:13:13 Patient pain scale 0/10 ?. 10:13:23 IV patent on arrival in left antecubital with 0.9% NaCl at [facility]. 10:13:59 Oxygen 2 l/min etCO2 Nasal cannula was administered by Kulwinder Johnson RN; Per physician; 10:14:28 Heparin Flush Bag (1000units/500ml NS) 2 bags added to field was administered by Kulwinder Johnson RN; used for procedure; 10:14:30 Lab Result : Hemoglobin 14.6 g/dl 10:14:41 Lab results completed and on chart. 10:14:46 Right Radial & Right Groin area was prepped with chlora-prep and draped in sterile fashion 10:14:47 Alarms reviewed by R. N. 10:14:48 Sharps counted by scrub and verified by R.N. 10:14:49 0.9% NaCl 100 ml/hr I.V. was administered by Kulwinder Johnson RN; Per physician; 10:15:22 Use device set Radial Dx or PCI 10:15:24 ACIST Syringe (16401) opened to sterile field. 10:15:25 Medline Cath Pack ([id number]) opened to sterile field. 10:15:26 Bag Decanter () opened to sterile field. 10:15:28 DIAGNOSTIC WIRE .035 260cm J wire (975514) opened to sterile field. 10:15:29 ACIST Hand Control (00306) opened to sterile field. 10:15:30 Tegaderm 4 x 4 (1626W) opened to sterile field. 10:15:30 ACIST Manifold (63795) opened to sterile field. 10:15:31 MBrace Wrist Support ([id number]) opened to sterile field. 10:15:33 SHEATH 6Fr Prelude Radial ([id number]) opened to sterile field. 10:17:17 INFLATOR Merit BasixCompak (UT9159) opened to sterile field. 10:17:26 CHOICE PT Extra Support 182cm wire ([id number]) opened to sterile field. 10:17:52 Radial Cocktail (Verapomil 2mg/Nitro 400mcg/Heparin 1500units) 1 syringe added to field was administered by Kulwinder Johnson RN; used for procedure; 10:24:57 Physician arrived 10:24:58 Final Timeout: patient, procedure, and site verified with staff and physician. All members of the team are in agreement. 10:24:58 --------ALL STOP TIME OUT------ 10:25:01 Right Radial & Right Groin site verified by team. 10:25:03 Physical assessment completed. ASA score P 2 - A patient with mild systemic disease as per Candido Castaneda MD. 10:25:07 Sedation plan: IV Moderate Sedation Medication:Versed, Fentanyl 10:25:12 Procedure started. 10:25:16 Local anesthetic to right femoral artery with Lidocaine 2% by Candido Castaneda MD.INITIAL ACCESS ONLY 10:25:25 Fentanyl 50 mcg I.V. was administered by Kulwinder Johnson RN; for sedation; 10:25:31 Versed 1 mg I.V. was administered by Kulwinder Johnson RN; for sedation; 10:25:35 A 6 Fr Short sheath was inserted into the Right Radial artery 10:25:43 Radial Cocktail (Verapomil 2mg/Nitro 400mcg/Heparin 1500units) 1 syringe I.A. was administered by Candido Castaneda MD; for vasodilation; 10:25:48 GUIDE 6FR XBLAD 4.0 SH catheter ([id number]) opened to sterile field. 10:25:55 Heparin Bolus 4000 units I.V. was administered by Kulwinder Johnson RN; for anticoagulation; 10:26:03 6 Fr XBLAD 4 SH guide catheter was inserted over the wire 10::32 CHOICE wire advanced. 10:26:34 Wire advanced across lesion. 10:27:43 Fentanyl 50 mcg I.V. was administered by Kulwinder Johnson RN; for sedation; 10::48 Versed 1 mg I.V. was administered by Kulwinder Johnson RN; for sedation; 10::58 Place stent Inflation Number: 1 A JOE RX 2.5 x 26 stent ([id number]) was prepped and advanced across the Mid LAD. The stent was deployed at 15 POLY for 0:10 (min:sec). 10:28:41 Stent catheter was removed intact over wire. 10:28:42 Wire removed. 10:28:43 Guide catheter removed. 10:29:01 TR BAND Standard ([id number]) opened to sterile field. 10:30:45 Sheath removed intact; hemostasis achieved with Mechanical Compression to the Right Radial artery. 10:30:47 Procedure ended.(Physican Out) 10::58 Fluoroscopy time 01.60 minutes. 10:31:05 Fluoroscopy dose: 141.26 mGy 10:31:05 Flurop Dose total: 141.26 10:31:11 Contrast amount:Isovue 300 40ml. 10:31:12 Sharps counted by scrub and verified by R.N. 10:33:23 TR band inflated with 10cc of air. 10:33:26 Insertion/operative site no bleeding no hematoma. 10:33:34 Post right radial artery:stable 10:33:40 Post-procedure physical assessment completed. ASA score P 2 - A patient with mild systemic disease as per Candido Castaneda MD. 10:33:44 Post procedure rhythm: sinus rhythm 10:33:48 Estimated blood loss: 20 ml 10:33:50 Post procedure instruction explained to patient.Patient verbalizes understanding. 10:34:03 Patient needs reinforcement of post procedure teaching. 10:34:05 Procedure and supply charges have been captured, reviewed, submitted and are correct. 10:34:06 Vital chart was stopped 10:34:07 See physician's report for complete and final results. 10:34:09 Report given to Pre/Post Procedure Room. 10:34:13 Patient transfered to Pre/Post Procedure Room with Stretcher. 10:34:16 Full Disclosure recording stopped 10:34:16 Procedure ended. 10:34:20 End room use (Document Last) 10:42:37 Patient Weight : 210 lbs Intervention Summary Intervention Notes Time ActionType Lesion and Equipment Used Action# Pressure Duration Attributes 10:27:58 Place stent Mid LAD JOE RX 2.5 x 1 15 00:10 26 stent ([id number]) Device Usage Item Name Manufacture Quantity Catalog Number Hospital Part Current Minimal Lot# / Charge Number Stock Stock Serial# Code ACIST Syringe Acist 1 37252 878109 570175 339724 20 (11791) Medical Systems Inc Medline Cath Cardinal 1 [id number] 330916 79182 695842 5 [facility] ([id number]) Bag Decanter Microtek 1 2001S 942164 84961 543372 5 (2001S) Medical Inc. DIAGNOSTIC WIRE St Dawit 1 680566 163248 605004 003868 30 .035 260cm J wire (907249) ACIST Hand Acist 1 22095 386940 857745 388607 5 Control (70690) Medical Systems Inc ACIST Manifold Acist 1 76495 765259 743892 730665 5 (28440) Medical Systems Inc Tegaderm 4 x 4 3M 1 1626W 048705 226384 523142 5 (1626W) MBrace Wrist Advanced 1 140-0250-00 403683 01574 595530 5 Support Vascular ([id number]) Dynamics SHEATH 6Fr Merit 1 [id number] 906816 798306 347087 5 Prelude Radial Medical ([id number]) INFLATOR Merit Merit 1 DF3400 145634 912672 699472 15 BasixSnapLayoutwiCalsys Medical (UY5149) CHOICE PT Extra [place] 1 [id number] 102723 866138 136749 5 Support 182cm Scientific wire ([id number]) GUIDE 6FR XBLAD Cardinal 1 [id number] 140633 3732 158458 3 4.0 [employer] ([id number]) JOE RX 2.5 x Medtronic 1 [id number] 582537 7420429 358017 5 [id number] 26 stent ([id number]) TR BAND Terumo 1 [id number] 344499 396451 236920 40 Standard ([id number]) Signature Audit [place] Stage Time Signature Unsigned Intra-Procedure 09/10/2017 Bigg Pena 10:42:54 AM RT(R) (CV) Signatures Monitor : Bigg Pena RT Signature : Date : Time : [place] [id number] [place] [address]
[~2017-09-10 07:52] MED LIST changes: +ACTOS30 MG PO; +AGGRENOX 200/251 CAP PO; +BAYER ASPIRIN325 MG PO
[2017-09-10 08:27] VITALS: BP 114/68; Ht 152.4 cm; Wt 95.5 kg
[2017-09-10 08:30] LABS: BASOPHILS 0.3 % (0-2); EOSINOPHILS 2.1 % (0-7); HEMATOCRIT 42.7 % (42.0-54.0); HEMOGLOBIN 14.6 g/dL (13.5-17.5); IMMATURE GRANULOCYTES 0.7 % (0-5); LYMPHOCYTES 17.4 % (15-50); MCH 31.7 pg (26.0-34.0); MCHC 34.2 g/dL (31.0-37.0); MCV 92.6 fL (80.0-100.0); MEAN PLATELET VOLUME 10.6 fL (7.4-10.4); MONOCYTES 7.6 % (2-11); NEUTROPHILS 71.9 % (40-80); PLATELET COUNT 230 10x3/uL (130-400); RBC 4.61 10x6/uL (4.20-6.10); RDW 13.6 % (11.5-14.5); WBC 7.6 10x3/uL (4.8-10.8)
[2017-09-10 08:39] LABS: CALC OSMOLALITY 274 mosm/kg (275-300); CALCIUM 8.9 mg/dL (8.5-10.1); CARBON DIOXIDE 28.2 mmol/L (21.0-32.0); CHLORIDE - SERUM 102 mmol/L (98-107); GLUCOSE 133 mg/dL (74-106); POTASSIUM - SERUM 4.2 mmol/L (3.5-5.1); SODIUM 136 mmol/L (136-145); UREA NITROGEN 14 mg/dL (7-18); eGFR NON AFRICAN AMERICAN 84 mL/min (90-120)
== END 2017-09-10 14:30 | disposition home or self-care (01) ==
LOC: D.CATH 07:52
PROVIDERS: Internal Medicine Interventional Cardiology
DX: I25.119 Atherosclerotic heart disease of native coronary artery with unspecified angina pectoris (principal); Z01.812 Encounter for preprocedural laboratory examination; Z95.5 Presence of coronary angioplasty implant and graft

== ENCOUNTER → 2019-04-23 07:45 | Outpatient (CLI) | payer BC ==
--- NOTE | ~2019-04-23 | ST ---
PATIENT:RUBY DAI MEDICAL RECORD: [id number] SEX: M LOCATION:[facility] ORDER #: ADMISSION DATE: 04/23/19 AGE OF PATIENT: 53 REFERRING PHYSICIAN: INTERPRETING PHYSICIAN: RIOS GUNN MD DATE OF SERVICE: 04/23/2019 PROCEDURE: Nuclear stress test. INDICATION: Angina, coronary artery disease, shortness of breath, hyperlipidemia. TECHNIQUE: He was exercised on standard Lexiscan protocol with 30 mCi of sestamibi injected at peak stress, 11 mCi used previously for rest images. FINDINGS: Gated SPECT reveals preserved ejection fraction at 66% with good wall motioning and thickening and brightening throughout all segments. SPECT imaging Cardiolite was used as myocardial perfusion agent. There is reversibility inferiorly and apically. This includes the basal, mid, apical inferior segments as well as the apex itself. The degree of reversibility is moderate. The amount of myocardium involved is moderate. OVERALL IMPRESSION: This is an intermediate risk abnormal nuclear stress test. Reversible ischemia inferiorly and apically suggestive of hemodynamically significant coronary disease. TRANSINT:[id number] Voice Confirmation ID: [id number] DOCUMENT ID: [id number] RIOS GUNN MD CC: [id number] DICTATION DATE: 04/23/19 1706 JOURNEYMAN PIPE FITTER: 04/24/19 1157 DEP CLI 04/23/19 [facility] [address] [place] [id number]
== END | disposition home or self-care (01) ==
LOC: D.HCCARDIO 07:45
PROVIDERS: ATTEND Internal Medicine Interventional Cardiology
DX: I25.10 Atherosclerotic heart disease of native coronary artery without angina pectoris (principal)

== ENCOUNTER 2019-05-07 07:21 | Outpatient (CLI) | payer BC ==
[~2019-05-07] VITALS: Ht 152.4 cm; Wt 105.8 kg
--- NOTE | ~2019-05-07 | OP ---
PATIENT NAME: RUBY DAI MEDICAL RECORD: [id number] :67 LOCATION:D.CAT ADMISSION DATE: SURGEON: RIOS GUNN MD DATE OF OPERATION: 05/07/2019 PROCEDURES: 1. PTCA stent RCA. 2. PTCA stent LAD. 3. IFR. 4. Left heart catheterization. 5. Selective coronary angiography. 6. Left ventriculogram. INDICATION: Angina and coronary artery disease. PROCEDURE IN DETAIL: After informed consent was obtained and after a detailed description of risks, benefits as well as alternative therapies, the patient elected to proceed with angiogram and angioplasty. The right radial area was prepped and draped in normal sterile fashion. Right radial artery was cannulated via modified Seldinger technique with placement of 6-Czech sheath. All catheters exchanged through this sheath. FINDINGS: Left ventriculogram was performed in standard 30-degree GIRALDO view, reveals good cardiac wall motion, ejection fraction estimated at 60%. SELECTIVE CORONARY ANGIOGRAPHY: 1. Left main is with no significant angiographic disease. 2. Left anterior descending has 90% stenosis in the proximal aspect and IFR was abnormal. 3. Left circumflex has mild irregularities, but no flow-limiting stenosis. 4. The right coronary has multiple previously placed stents with areas of 90% to 95% in-stent restenosis. PTCA STENT OF THE LAD: The stent used was a 3.0 x 18 mm Hollins. Result was 0% residual stenosis. PTCA STENT OF THE RCA: Stents used were 3.0 x 30 and 3.0 x 15 mm Hollins. Result was 0% residual stenosis. OVERALL IMPRESSION: Successful percutaneous transluminal coronary angioplasty stent of the left anterior descending and right coronary artery, both going from 90% to 95% initial stenosis to 0% residual. TRANSINT:[id number] Voice Confirmation ID: [id number] DOCUMENT ID: [id number] RIOS GUNN MD CC: [id number] DICTATION DATE: 05/07/19 1034 GUEST SERVICES LEAD: 05/07/19 [address] [place] [address] [id number] [place] [address]
--- NOTE | ~2019-05-07 | HEMODYNAMI ---
PATIENT:RUBY DAI MEDICAL RECORD: [id number] : 67 LOCATION:D.CAT ADMISSION DATE: 05/07/19 Generatedon:05/07/201910:39 Patient name: RUBY DAI Patient #: [id number] SSN: [id number] : 1965 Date of study: 05/07/2019 Page: Of Hemodynamic Procedure Report Patient Data Patient Demographics Procedure consent was obtained First Name: RUBY Gender: Male Last Name: SUHAS : 1965 Middle Initial: LOY Age: 53 year(s) Patient #: [id number] Race: SSN: [id number] Additional ID: [id number] Contact details Address: [address] [place] [address] circle State: [place] City: [place] Zip code: [address] Past Medical History Allergies Allergen Reaction Date Comments Reported Other allergy 09/05/2017 GADOLINIUM CONTRAST Other allergy 05/07/2019 gadolinium-containging contrast media Admission Admission Data Admission Date: 05/07/2019 Admission Time: 7:21 Arrival Date: 05/07/2019 Arrival Time: 0:00 Insurance Payor: Private health insurance [facility] #: [id number] Height (in.): 59.84 BSA: 1.99 (m2) Height (cm.): 152 BMI: 45.88 (kg/m2) Weight (lbs.): 233.69 Weight (kg.): 106 Lab Results Lab Result Date: 05/07/2019 Lab Result Time: 0:00 Biochemistry Name Units Result Min Max BUN mg/dl 13 --(--*-)-- 7 18 Creatinine mg/dl 0.9 --(-*--)-- 0.6 1.3 eGFR ml/min 90 --(*---)-- 90 120 NONAFRICAN CBC Name Units Result Min Max Hematocrit % 38 *-(----)-- 42 54 Hemoglobin g/dl 12.7 -*(----)-- 13.5 17.5 Procedure Procedure Types Cath Procedure Diagnostic Procedure [facility] w/Coronaries FFR/IVUS FFR Initial Sedation Charges Moderate Sedation up to 30 minutes PCI Procedure Coronary Stent Coronary Stent Initial x2 Hemochron ACT Test Procedure Description Procedure Date Procedure Date: 05/07/2019 Procedure Start Time: 10:07 Procedure End Time: 10:37 Procedure Staff Name Function Candido Castaneda MD Performing Physician Osiris Morrow RN Nurse Mackenzie Noel RT Monitor Jerrica Shine RT Scrub Stephanie Nunez RN Monitor Procedure Data Cath Procedure Fluoroscopy Diagnostic fluoroscopy Total fluoroscopy Time: 8.8 time: 8.8 min min Diagnostic fluoroscopy Total fluoroscopy dose: dose: 1332 mGy 1332 mGy Contrast Material Contrast Material Type Amount (ml) Isovue 300 171 Entry Location Entry Primary Successful Side Size Upsize Upsize Entry Closure Chandler ccessful Closure Location (Fr) 1 (Fr) 2 (Fr) Remarks Device Remarks Radial Right 6 Fr Manual artery Short Compression Estimated blood loss: 10 ml Diagnostic catheters Device Type Used For End Catheter Placement DIAGNOSTIC Langley 110cm 5 Procedure Fr catheter ([id number]) DIAGNOSTIC AR MOD 5Fr Procedure Catheter ([id number]) Procedure Complications No complications Procedure Medications Medication Administration Route Dosage Oxygen etCO2 Nasal cannula 2 l/min Lidocaine 2% added to field 20 Heparin Flush Bag added to field 2 bags (1000units/500ml NS) 0.9% NaCl I.V. 100 ml/hr Radial Cocktail I.A. 1 syringe (Verapamil 2mg/Nitro 400mcg/Heparin 1500units) Versed I.V. 2 mg Fentanyl I.V. 100 mcg Versed I.V. 2 mg Fentanyl I.V. 100 mcg Versed I.V. 1 mg Fentanyl I.V. 50 mcg Heparin Bolus I.V. 4000 units Integrilin (Bolus I.V. 9.5 ml 2mg/ml) Versed I.V. 1 mg Fentanyl I.V. 50 mcg Plavix P.O. 600 mg Hemodynamics Rest BSA: 1.99 (m2) HGB: 12.7 (g/dl) O2 Consumption: Estimated: 242.02 (ml/min) O2 Co nsumption indexed: Estimated:121.62 (ml/min/m) Heart Rate: 77 (bpm) Snapshots Pre Cath Intra NCS Post Cath Vital Signs Time Heart Resp SPO2 etCO2 NIBP (mmHg) Rhythm Pain Sedation Rate (ipm) (%) (mmHg) Status Level (bpm) 9:50:39 70 13 98 35.4 124/70(102) NSR 0 (11) 10(A) , No pain 9:55:10 87 14 93 32.4 116/66(99) NSR 0 (11) 10(A) , No pain 9:59:34 82 15 95 37.7 116/72(89) NSR 0 (11) 10(A) , No pain 10:04:01 81 18 94 0.7 114/65(87) NSR 0 (11) 10(A) , No pain 10:08:25 81 14 95 0 118/67(97) NSR 0 (11) 10(A) , No pain 10:12:51 88 16 94 0 116/66(88) NSR 0 (11) 9(A) , No pain 10:17:17 85 19 94 0 107/59(80) NSR 0 (11) 9(A) , No pain 10:21:37 100 61 93 25.6 113/66(83) NSR 0 (11) 9(A) , No pain 10:25:59 91 66 94 27.9 122/67(83) NSR 0 (11) 9(A) , No pain 10:30:26 95 27 96 35.4 118/68(89) NSR 0 (11) 10(A) , No pain 10:34:50 87 42 97 30.9 116/68(93) NSR 0 (11) 10(A) , No pain Medications Time Medication Route Dose Verified Delivered Reason Not es Effectiveness by by 9:51:24 Oxygen etCO2 2 l/min Candido Newell used for Nasal Tonya Morrow RN procedure cannula 9:51:35 Lidocaine 2% added 20ml Candido Rey for local to vial Tonya Castaneda MD anesthetic field 9:51:43 Heparin Flush added 2 bags Candido Rey used for Bag to Tonya Castaneda MD procedure (1000units/500ml field NS) 9:51:53 0.9% NaCl I.V. 100 Candido Newell Per physician ml/hr Tonya Morrow RN 10:02:07 Versed I.V. 2 mg Candido Newell for sedation Tonya Morrow RN 10:02:14 Fentanyl I.V. 100 mcg Candido Buffie for sedation Tonya Morrow RN 10:06:27 Versed I.V. 2 mg Candido Buffie for sedation Tonya Morrow RN 10:06:32 Fentanyl I.V. 100 mcg Candido Buffie for sedation Tonya Morrow RN 10:09:19 Radial Cocktail I.A. 1 Candido Candido for (Verapamil syringe Tonya Castaneda MD vasodilation 2mg/Nitro 400mcg/Heparin 1500units) 10:11:06 Versed I.V. 1 mg Candido Buffie for sedation Tonya Morrow RN 10:11:10 Fentanyl I.V. 50 mcg Candido Hoganie for sedation Tonya Morrow RN 10:17:11 Heparin Bolus I.V. 4000 Candidoenedelia Newell for gladis ified units Tonya Morrow RN anticoagulation with dr castaneda 10:18:52 Integrilin I.V. 9.5 ml Candido Newell for was mary ann (Bolus 2mg/ml) Tonya Morrow RN antiplatelet 0.5 ml therapy of vial 10:22:35 Versed I.V. 1 mg Candido Newell for sedation Tonya Morrow RN 10:22:38 Fentanyl I.V. 50 mcg Candido Newell for sedation Tonya Morrow RN 10:32:54 Plavix P.O. 600 mg Candido Newell for Tonya Morrow RN antiplatelet therapy Procedure Log Time Note 9:20:55 Informed consent obtained and on chart 9:35:06 Patient allergic to Other allergygadolinium-containging contrast media 9:35:52 Arrival Date: 05/07/2019 12:00:00 AM 9:36:33 Insurance Payor : Private health insurance 9:36:38 Patient Height : 59.84 inches 9:36:45 Patient Weight : 233.69 lbs 9:37:28 Lab Result : Hemoglobin 12.7 g/dl 9:37:28 Lab Result : Hematocrit 38 % 9:37:28 Lab Result : eGFR NONAFRICAN 90 ml/min 9:37:28 Lab Result : BUN 13 mg/dl 9:37:28 Lab Result : Creatinine 0.9 mg/dl 9:37:38 Procedure Status Elective Heart Cath (OP). 9:38:23 Osiris Morrow RN sent for patient. Start room use. 9:38:27 Time tracking: Regular hours (M-F 7:00 - 5:00) 9:38:35 Plan of Care:Hemodynamics will remain stable., Cardiac rhythm will remain stable., Comfort level will be maintained., Respiratory function will remain adequate., Patient/ family verbilizes understanding of procedure., Procedure tolerated without complication., Recovers from procedure without complications.. 9:39:28 ACC Patient presents with Stable Angina CCS Anginal Class 3--Marked limitation of physical activity, angina occurs with ordinary activity.. 9:42:38 Patient diabetic? Yes. 9:42:41 If diabetic: On Metformin? Yes 9:42:53 If on Metformin: Last Dose? 05/04/2019 9:43:10 Patient received from Pre/Post Procedure Room to CCL 1 Alert and oriented. Tansferred to table in Supine position. 9:43:13 Warm blankets applied, and duane hugger turned on for patient comfort. 9:43:13 Correct patient and procedure confirmed by team. 9:43:18 ECG and BP/O2 sat monitors applied to patient. 9:43:40 H&P Date Dictated: 05/07/2019 H&P Addendum completed by physician on day of procedure. (MUST COMPLETE FOR ALL OUTPATIENTS), New H&P dictated by physician.. 9:43:43 Pre-procedure instructions explained to patient. 9:43:44 Pre-op teaching completed and patient verbalized understanding. 9:43:47 Family in patients room. 9:43:50 Patient NPO since Midnight. 9:43:54 Is the patient allergic to Iodine/contrast media? No. 9:43:58 Was the patient premedicated? Yes 9:44:11 Is patient on blood thinner?No 9:44:20 ----Pre-sedation anethsthesia assessment.---- 9:44:24 Previous problem with sedation/anesthesia? No ? 9:44:26 Snore? Yes 9:44:29 Sleep apnea? Yes 9:44:32 Deviated septum? No 9:44:39 Opens mouth fully? Yes 9:44:42 Sticks out tongue? Yes 9:45:00 Airway obstruction? Yes SLEEP APNEA WEAR CPAP AT NIGHT 9:45:28 Dentures? No ? 9:49:14 Vital chart was started 9:49:19 Rhythm: sinus rhythm 9:49:21 Full Disclosure recording started 9:51:23 Baseline sample Acquired. 9:51:24 Oxygen 2 l/min etCO2 Nasal cannula was administered by Osiris Morrow RN; used for procedure; Verbal order read back and verified. 9:51:28 Pre procedure: right dorsailis pedis pulse 1+ Palpable, but thready & weak; easily obliterated 9:51:29 Modified Kashif's test Ulnar < 7 seconds 9:51:31 Patient pain scale 0/10 ?. 9:51:35 Lidocaine 2% 20ml vial added to field was administered by Candido Castaneda MD; for local anesthetic; Verbal order read back and verified. 9:51:37 IV patent on arrival in right antecubital with 0.9% NaCl at [facility]. 9:51:40 Lab results completed and on chart. 9:51:43 Heparin Flush Bag (1000units/500ml NS) 2 bags added to field was administered by Candido Castaneda MD; used for procedure; Verbal order read back and verified. 9:51:50 Risk of Mortality: .1 9:51:52 Risk of blood transfusion: .3 9:51:53 0.9% NaCl 100 ml/hr I.V. was administered by Osiris Morrow RN; Per physician; Verbal order read back and verified. 9:51:55 Risk of WILLARD: 1.6 9:51:58 Right Radial & Right Groin area was prepped with chlora-prep and draped in sterile fashion 9:51:58 Alarms reviewed by R. N. 9:51:59 Sharps counted by scrub and verified by R.N. 9:52:01 Use device set Radial Dx or PCI 9:52:02 ACIST Syringe (10059) opened to sterile field. 9:52:03 Medline Cath Pack ([id number]) opened to sterile field. 9:52:03 Bag Decanter () opened to sterile field. 9:52:05 ACIST Hand Control (85028) opened to sterile field. 9:52:05 ACIST Manifold (56844) opened to sterile field. 9:52:07 Tegaderm 4 x 4 (1626W) opened to sterile field. 9:52:07 MBrace Wrist Support ([id number]) opened to sterile field. 9:52:08 EMERALD Guide Wire (758-048) opened to sterile field. 9:52:09 SHEATH 6FR NANDO (0949020) opened to sterile field. 10:01:39 --------ALL STOP TIME OUT------ 10:01:40 Final Timeout: patient, procedure, and site verified with staff and physician. All members of the team are in agreement. 10:01:43 Right Radial & Right Groin site verified by team. 10:02:01 Fire Safety Assessment: A--An alcohol-based skin anteseptic being used preoperatively., C--Open oxygen or nitrous oxide is being used., D--An ESU, laser, or fiber-optic light is being used. 10:02:05 Physical assessment completed. ASA score P 2 - A patient with mild systemic disease as per Candido Castaneda MD. 10:02:07 Versed 2 mg I.V. was administered by Osiris Morrow RN; for sedation; Verbal order read back and verified. 10:02:12 1) 90+ Normal kidney functon but urine findings or structural abnormalities or genetic trait point to kidney disease. 10:02:14 Fentanyl 100 mcg I.V. was administered by Osiris Morrow RN; for sedation; Verbal order read back and verified. 10:02:15 Maximum allowable contrast dose (3.7 X eGFR X 0.75)250 ml. 10:02:19 Sedation plan: IV Moderate Sedation Medication:Versed, Fentanyl 10:06:24 Procedure started. 10:06:27 Versed 2 mg I.V. was administered by Osiris Morrow RN; for sedation; Verbal order read back and verified. 10:06:32 Fentanyl 100 mcg I.V. was administered by Osiris Morrow RN; for sedation; Verbal order read back and verified. 10:07:05 Local anesthetic to right radial artery with Lidocaine 2% by Candido Castaneda MD.INITIAL ACCESS ONLY 10:08:38 A 6 Fr Short sheath was inserted into the Right Radial artery 10:09:19 Radial Cocktail (Verapamil 2mg/Nitro 400mcg/Heparin 1500units) 1 syringe I.A. was administered by Candido Castaneda MD; for vasodilation; Verbal order read back and verified. 10:09:51 A DIAGNOSTIC Langley 110cm 5 Fr catheter (961356) was advanced over the wire and used for Procedure. 10:10:29 LV gram done using GIRALDO 10:10:33 Injector settings: Ml/sec: 5, Volume: 15, 10:10:39 EF : 55 % 10:10:53 LCA angiography performed. 10:11:06 Versed 1 mg I.V. was administered by Osiris Morrow RN; for sedation; Verbal order read back and verified. 10:11:10 Fentanyl 50 mcg I.V. was administered by Osiris Morrow RN; for sedation; Verbal order read back and verified. 10:11:42 Use device set CODY PCI 10:11:55 INFLATOR Merit BasixCompak (JX5522) opened to sterile field. 10:13:25 [place] Verrata Plus pressure wire (16544V) opened to sterile field. 10:13:29 A DIAGNOSTIC AR MOD 5Fr Catheter (849371V) was advanced over the wire and used for Procedure. 10:14:08 RCA angiography performed. 10:14:58 GUIDE 6FR AR 2.0 SH catheter ([id number]) opened to sterile field. 10:14:59 GUIDE 6FR XBLAD 3.5 catheter ([id number]) opened to sterile field. 10:15:00 CHOICE PT Extra Support 182cm wire ([id number]) opened to sterile field. 10:15:15 Catheter removed. 10:15:17 ACCDominant side:Left 10:15:19 Proceeding to intervention. 10:15:37 PCI Cath status Elective 10:15:58 6 Fr XBLAD 3.5 guide catheter was inserted over the wire 10:17:09 FFR/IFR wire advanced. 10:17:11 Heparin Bolus 4000 units I.V. was administered by Osiris Morrow RN; for anticoagulation; verified with dr castaneda Verbal order read back and verified. 10:17:35 Wire advanced across lesion. 10:18:52 Integrilin (Bolus 2mg/ml) 9.5 ml I.V. was administered by Osiris Morrow RN; for antiplatelet therapy; wasted 0.5 ml of vial Verbal order read back and verified. 10:19:11 mLAD lesion measured at 0.54 with IFR 10:19:39 ACC Pre-intervention BEN Flow is 3. 10:19:45 Pre PCI Site: [place] mLAD has 90% stenosis. 10:20:42 Place stent Inflation Number: 1 A JOE RX 3.0 x 18 stent ([id number]) was prepped and advanced across the Mid LAD . The stent was deployed at 17 POLY for 0:00 (min:sec) . 10:21:09 Inflation number: 2 The stent balloon was then re-inflated across the Mid LAD to 15 POLY for 0:00 (min:sec) . 10:21:20 ACC Post-intervention BEN Flow is 3. 10::25 Stent catheter was removed intact over wire. 10::28 Wire removed. 10::30 Guide catheter removed. 10::42 6 Fr AR 2 SH guide catheter was inserted over the wire 10:: CHOICE PT ES wire advanced. 10::23 ACC Pre-intervention BEN Flow is 3. 10:22:25 Pre PCI Site: [place] mRCA has 90% stenosis. 10::35 Versed 1 mg I.V. was administered by Osiris Morrow RN; for sedation; Verbal order read back and verified. 10::38 Fentanyl 50 mcg I.V. was administered by Osiris Morrow RN; for sedation; Verbal order read back and verified. 10:25:07 Place stent Inflation Number: 1 A JOE RX 3.0 x 30 stent ([id number]) was prepped and advanced across the Mid RCA . The stent was deployed at 19 POLY for 0:05 (min:sec) . 10:25:18 Inflation number: 2 The stent balloon was then re-inflated across the Mid RCA to 19 POLY for 0:00 (min:sec) . 10:26:06 Stent catheter was removed intact over wire. 10:26:54 Place stent Inflation Number: 1 A JOE RX 3.0 x 15 stent ([id number]) was prepped and advanced across the Prox RCA . The stent was deployed at 19 POLY for 0:00 (min:sec) . 10:27:13 Stent catheter was removed intact over wire. 10:28:47 Inflate balloon Inflation number: 1 A NC EUPHORA 3.5 x 15 balloon ([id number]) was prepped and advanced across the Prox RCA , then inflated to 23 POLY for 0:10 (min:sec) . 10:30:13 ACT drawn and resulted at out of range high seconds. (normal therapeutic range 180-240 seconds). 10:30:15 Inflation number: 3 The NC EUPHORA 3.5 x 15 balloon ([id number]) was reinflated across the Prox RCA , to 19 POLY for 0:00 (min:sec) . 10:30:21 Inflation number: 3 The NC EUPHORA 3.5 x 15 balloon ([id number]) was reinflated across the Mid RCA , to 19 POLY for 0:00 (min:sec) . 10:30:34 Balloon removed over the wire. 10:30:35 Wire removed. 10:30:35 Guide catheter removed. 10:31:01 ACC Post-intervention BEN Flow is 3. 10:31:10 ZEPHYR LARGE TR BAND (859261) opened to sterile field. 10:32:54 Plavix 600 mg P.O. was administered by Osiris Morrow RN; for antiplatelet therapy; Verbal order read back and verified. 10:33:04 Sheath removed intact; hemostasis achieved with Manual Compression to the Right Radial artery. 10:33:06 Procedure ended.(Physican Out) 10:33:16 Fluoroscopy time 08.80 minutes. 10:33:19 Fluoroscopy dose: 1332 mGy 10:33:19 Flurop Dose total: 1332 10:33:23 Dose Area Product 69081 mGy/cm. 10:33:28 Contrast amount:Isovue 300 171ml. 10:33:31 Maximum allowable dose exceeded? No. 10:33:32 Sharps counted by scrub and verified by R.N. 10:33:37 Proctor band inflated with 10cc of air. 10:33:39 Insertion/operative site no bleeding no hematoma. 10:33:47 Post right radial artery:stable, soft, clean and dry 10:33:49 Post Procedure Pulses reassessed and unchanged 10:33:53 Post procedure: right radial pulse 2+ Normal; easily identifiable; not easily obliterated. 10:33:56 Post-procedure physical assessment completed. ASA score P 2 - A patient with mild systemic disease as per Candido Castaneda MD. 10:33:59 Post procedure rhythm: unchanged. 10:34:03 Estimated blood loss: 10 ml 10:34:05 Post procedure instruction explained to patient.Patient verbalizes understanding. 10:34:06 Patient needs reinforcement of post procedure teaching. 10:35:51 Procedure type changed to Cath procedure, Diagnostic procedure, C, [facility] w/Coronaries, FFR/IVUS, FFR Initial, Sedation Charges, Moderate Sedation up to 30 minutes, PCI procedure, Coronary Stent, Coronary Stent Initial x2, Hemochron ACT Test 10:36:50 Procedure and supply charges have been captured, reviewed, submitted and are correct. 10:36:54 Procedure Complication : No complications 10:37:01 Vital chart was stopped 10:37:02 [facility] Findings: MVD- PCI performed (see procedure note) 10:37:11 Operative report dictated upon procedure completion. 10:37:11 See physician's report for complete and final results. 10:37:33 Report given to Pre/Post Procedure Room. 10:37:40 Patient transfered to Pre/Post Procedure Room with Stretcher. 10:37:42 Procedure ended. 10:37:42 Full Disclosure recording stopped 10:37:50 ACC-PCI Only Patient was given prescriptions, or instructed by Candido Castaneda MD to start/continue the following medications upon discharge: Plavix 10:37:51 End room use (Document Last) 10:37:59 End room use (Document Last) Intervention Summary Intervention Notes Time ActionType Lesion and Equipment Used Action# Pressure Duration Attributes 10:20:42 Place stent Mid LAD JOE RX 3.0 x 1 17 00:00 18 stent ([id number]) 10:21:09 Reinflate Mid LAD JOE RX 3.0 x 2 15 00:00 stent 18 stent balloon ([id number]) 10:25:07 Place stent Mid RCA JOE RX 3.0 x 1 19 00:05 30 stent ([id number]) 10:25:18 Reinflate Mid RCA JOE RX 3.0 x 2 19 00:00 stent 30 stent balloon ([id number]) 10:26:54 Place stent Prox RCA JOE RX 3.0 x 1 19 00:00 15 stent ([id number]) 10:28:47 Inflate Prox RCA NC EUPHORA 3.5 1 23 00:10 balloon x 15 balloon ([id number]) 10:30:15 Reinflate Prox RCA NC EUPHORA 3.5 3 19 00:00 balloon x 15 balloon ([id number]) 10:30:21 Reinflate Mid RCA NC EUPHORA 3.5 3 19 00:00 balloon x 15 balloon ([id number]) Device Usage Item Name Manufacture Quantity Catalog Number Hospital Part Current Minimal Lot# / Charge Number Stock Stock Serial# Code ACIST Syringe Acist 1 22246 466339 841037 509519 20 (54357) Medical Systems Inc Medline Cath Medline 1 [id number] 283223 45137 612392 5 Pack ([id number]) Bag Decanter Microtek 1 2001S 318810 71695 412513 5 () Medical Inc. ACIST Hand Acist 1 00466 697157 840841 346421 5 Control Medical (43888) Systems Inc ACIST Manifold Acist 1 56544 601415 013289 197035 5 (62479) Medical Systems Inc Tegaderm 4 x 4 3M 1 1626W 993697 070696 719576 5 (1626W) MBrace Wrist Advanced 1 140-0250-00 409835 91317 039850 5 Support Vascular (367637534) Dynamics EMERALD Guide Cardinal 1 502-455 602453 960800 124649 5 Wire (502-455) Health SHEATH 6FR Cardinal 1 2028023 426404 5613315 786314 5 RAIN (9420698) Health DIAGNOSTIC Terumo 1 40-5013 180706 528928 077733 5 [place] 110cm 5 Fr catheter (293333) INFLATOR Merit Merit 1 RT7058 197187 456633 310345 15 [facility] (XJ3404) [place] 1 69090G 996199 [id number] 579668 5 Verrata Plus pressure wire (53845J) DIAGNOSTIC AR Cardinal 1 [id number] 402445 870114 490966 15 MOD 5Fr Health Catheter (183261B) GUIDE 6FR AR Medtronic 1 [id number] 941909 15008 662460 1 2.0 SH catheter ([id number]) GUIDE 6FR Cardinal 1 [id number] 740799 381928 732267 10 XBLAD 3.5 Health catheter (97105094) CHOICE PT [place] 1 [id number] 043515 837519 347688 5 Extra Support Scientific 182cm wire ([id number]) JOE RX 3.0 x Medtronic 1 [id number] 790317 9349487 551553 5 [id number] 18 stent ([id number]) JOE RX 3.0 x Medtronic 1 [id number] 822854 2358990 049294 5 [id number] 30 stent ([id number]) JOE RX 3.0 x Medtronic 1 [id number] 013043 2596903 957724 5 [id number] 15 stent ([id number]) NC EUPHORA 3.5 Medtronic 1 [id number] 131715 922662 805883 1 [id number] x 15 balloon ([id number]) ZEPHYR LARGE Cardinal 1 763714 141493 1480631 315452 5 [facility] (018996) Signature Audit [place] Stage Time Signature Unsigned Intra-Procedure 05/07/2019 Stephanie Nunez 10:38:33 AM RN Intra-Procedure 05/07/2019 Osiris Morrow RN 10:39:00 AM Intra-Procedure 05/07/2019 Candido Castaneda 10:39:40 AM [facility] [address] [place] [address]
[2019-05-07] MEDS ORDERED: VITAMIN B-1250 MCG (07:55)
[2019-05-07] MEDS ORDERED: AGGRENOX 200/251 CAP PO (07:55)
[2019-05-07 08:12] VITALS: BP 115/68; Ht 152.4 cm; Wt 105.8 kg
[2019-05-07 08:26] LABS: BASOPHILS 0.2 % (0-2); EOSINOPHILS 1.4 % (0-7); HEMOGLOBIN 12.7 g/dL (13.5-17.5); IMMATURE GRANULOCYTES 0.2 % (0-5); LYMPHOCYTES 17.3 % (15-50); MCH 32.1 pg (26.0-34.0); MCHC 33.4 g/dL (31.0-37.0); MEAN PLATELET VOLUME 9.9 fL (7.4-10.4); MONOCYTES 10.3 % (2-11); NEUTROPHILS 70.6 % (40-80); PLATELET COUNT 218 10x3/uL (130-400); RBC 3.96 10x6/uL (4.20-6.10); RDW 13.2 % (11.5-14.5)
[2019-05-07 08:40] LABS: ALT (SGPT) 37 U/L (10-68); CALC OSMOLALITY 275 mosm/kg (275-300); CALCIUM 8.7 mg/dL (8.5-10.1); CARBON DIOXIDE 27.1 mmol/L (21.0-32.0); CHLORIDE - SERUM 103 mmol/L (98-107); CHOLESTEROL, TOTAL 166 mg/dL (0-200); CREATININE - SERUM 0.9 mg/dL (0.6-1.3); GLUCOSE 105 mg/dL (74-106); HDL CHOLESTEROL 82 mg/dL (32-96); LDL CHOLESTEROL 69 mg/dL (0-100); LDL-HDL RATIO 0.8 ratio (1.5-3.5); SODIUM 138 mmol/L (136-145); TRIGLYCERIDE 75 mg/dL (30-200); UREA NITROGEN 13 mg/dL (7-18); eGFR NON AFRICAN AMERICAN > 90 mL/min (90-120)
--- NOTE | 2019-05-07 10:45 | NUR ---
REC TO ROOM FROM EVENTS ASSISTANT VIA STRETCHER. MONITORING INITIATED. R RADIAL BAND INTACT, RADIAL PULSE PALPABLE ABOVE AND BELOW BAND. INSTRUCTED NOT TO USE R HAND, AND THAT HE IS ON BEDREST FOR THE NEXT THREE AND A HALF HOURS. AND PT VERBALIZE UNDERSTANDING. NSR 84, BP 119/73, RR 14, SAT 100% 2LNC.
--- NOTE | 2019-05-07 11:30 | NUR ---
R WRIST CDI, NO S/S BLEEDING OR HEMATOMA. PPP. NSR 87, BP 134/75, RR 16, SAT 97%RA.
--- NOTE | 2019-05-07 11:45 | NUR ---
R RADIAL ARTERY PALPABLE ABOVE AND BELOW BAND. NO S/S BLEEDING OR HEMATOMA. DISCUSSED IMMOBILIZER USE AT HOME. BP 134/75, NSR 76, RR 16 SAT 98% RA.
--- NOTE | 2019-05-07 12:15 | NUR ---
R RADIAL PULSE PALPABLE ABOVE AND BELOW BAND. NO S/S BLEEDING OR HEMATOMA. BP 122/69, NSR 74, SAT 98% RA.
--- NOTE | 2019-05-07 12:45 | NUR ---
R RADIAL PULSE PALPABLE ABOVE AND BELOW BAND, NO S/S BLEEDING OR HEMATOMA. BP 110/70, NSR 77, SAT 97% ON RA.
--- NOTE | 2019-05-07 13:15 | NUR ---
R RADIAL ARTERY PALPABLE ABOVE AND BELOW BAND. NO S/S BLEEDING OR HEMATOMA, NO C/O UNUSUAL SENSATION
[2019-05-07] MEDS ORDERED: PLAVIX75 MG PO (13:26)
--- NOTE | 2019-05-07 13:45 | NUR ---
ONE ML AIR REMOVED ZBAND, NO S/S BLEEDING OR HEMATOMA.
--- NOTE | 2019-05-07 14:00 | NUR ---
TWO ML AIR REMOVED ZBAND, NO S/S BLEEDING OR HEMATOMA R RADIAL.
--- NOTE | 2019-05-07 14:10 | NUR ---
2 ML AIR REMOVED ZBAND, TOTAL 5 ML OUT, NO S/S BLEEDING OR HEMATOMA R RADIAL. PT UP AT BEDSIDE TO USE URINAL.
--- NOTE | 2019-05-07 14:30 | NUR ---
8ML TOTAL OUT R RADIAL BAND, NO S/S BLEEDING OR HEMATOMA. IV DC, TIP INTACT, PT DRESSING W ASSIST OF .
--- NOTE | 2019-05-07 14:40 | NUR ---
AMBULATED TO REST ROOM WITHOUT DIFFICULTY. BACK TO ROOM, R RADIAL BAND REMOVED, ACCESS SITE COVERED WITH 2X2 AND TEGADERM. NO S/S BLEEDING OR HEMATOMA. DC INSTRUCTIONS DISCUSSED WITH PT AND . PT DC HOME VIA WHEELCHAIR TO PRIVATE CAR WITH , PT HAS ALL BELONGINGS.
== END 2019-05-07 14:45 | disposition home or self-care (01) ==
LOC: D.CATH 07:21
PROVIDERS: ATTEND Internal Medicine Interventional Cardiology
DX: I25.119 Atherosclerotic heart disease of native coronary artery with unspecified angina pectoris (principal); E78.5 Hyperlipidemia, unspecified; R06.09 Other forms of dyspnea; R07.9 Chest pain, unspecified; I10 Essential (primary) hypertension